=== PATIENT | female | born 1965 | race African-American/Black ===

== ENCOUNTER 2022-01-15 12:35 | Observation (INO) | payer BC ==
[~2022-01-15] VITALS: Ht 177.8 cm; Wt 62.7 kg
[2022-01-15 13:11] LABS: COLLECTION METHOD CLEAN CATCH
[2022-01-15 13:18] LABS: BASO % 0.4 % (0.0-2.0); EOS # 0.1 K/mm3 (0.0-0.7); EOS % 2.1 % (0.0-4.0); GRAN # 3.2 K/mm3 (1.4-6.5); GRAN % 61.3 % (42.2-75.2); HEMOGLOBIN 11.6 g/dl (12.5-16.0); LYMPH # 1.5 K/mm3 (1.2-3.4); LYMPH % 27.5 % (20.0-51.0); MEAN CELL VOLUME 94 fl (80.0-100.0); MEAN CORPUSCULAR HEMOGLOBIN 31 pg (27-31); MEAN CORPUSCULAR HGB CONC 33 g/dl (33.0-37.0); MEAN PLATELET VOLUME 10.2 fl (7.4-10.4); MONO # 0.5 K/mm3 (0.1-0.6); MONO % 8.5 % (1.7-9.3); PLATELET COUNT 244 K/mm3 (130-400); RED BLOOD COUNT 3.75 M/mm3 (4.10-5.30); REDCELL DISTRIBUTION WIDTH-CV 12.3 % (11.5-14.5)
[2022-01-15 13:20] LABS: HEMATOCRIT 35.1 % (37.0-47.0)
[2022-01-15 13:24] LABS: SQUAMOUS EPITHELIAL 0-2 /hpf (0-10); URINE APPEARANCE Clear (CLEAR/HAZY); URINE BACTERIA None Seen /hpf (NONE SEEN); URINE COLOR Yellow (YELLOW); URINE RBC None Seen /hpf (0-2); URINE WBC 0-2 /hpf (0-2)
[2022-01-15 13:25] LABS: INR 1.1 (0.8-3.0); PROTHROMBIN TIME 12.2 SECONDS (9.7-12.8)
[2022-01-15 13:29] LABS: URINE BLOOD Negative (NEGATIVE); URINE GLUCOSE Negative (NEGATIVE); URINE KETONE Negative (NEGATIVE); URINE NITRATE Negative (NEGATIVE); URINE PROTEIN(semi-quant) Negative (NEGATIVE); URINE UROBILINOGEN 0.2 (NEGATIVE)
[2022-01-15 13:37] LABS: ALANINE AMINOTRANSFERASE 25 U/L (0-55); ALBUMIN 3.4 gm/dL (3.5-5.0); ALKALINE PHOSPHATASE 81 U/L (40-150); ANION GAP 7 mmol/L (7-16); AST,SGOT 23 U/L (5-34); BILIRUBIN,TOTAL 0.2 mg/dL (0.2-1.2); BLOOD UREA NITROGEN 15 mg/dL (10-20); CALCIUM 9.4 mg/dL (8.4-10.2); CARBON DIOXIDE 28 mmol/L (22-29); CHLORIDE 103 mmol/L (98-107); CREATININE, serum 1.02 mg/dL (0.57-1.11); GLUCOSE 83 mg/dL (70-99); POTASSIUM 4.3 mmol/L (3.5-4.5); SODIUM 138 mmol/L (136-145); TOTAL PROTEIN 7.2 gm/dL (6.2-8.1)
[2022-01-15 13:44] LABS: TROPONIN-I < 0.010 ng/mL (0.00-0.033)
[2022-01-15 16:55] VITALS: BP 144/88; PULSE 58; TEMP 97.4
--- NOTE | 2022-01-15 18:14 | NUR ---
PT ADMITTED TO THE UNIT, VSS, ORIENT AND ALERTX 4, WITH IV CANNULAR RIGHT FORE ARM, NO SKIN ISSUES, SWALLOWING TEST DONE AT THE BED SIDE BY RN THICKENED APPLE JUICE GIVEN, GAG REFLEX NOTED, PT DENIES ANY PAIN DURING SWALLOWING NO CHOCKING NOTED, DIET ADVANCED TO REGULAR DIET.PT REGION IS JEHOVA WITNESS NO BLOOD TRANFUSION BUT OKAY WITH PLASMA TRANFUSION.
[2022-01-15] MEDS ORDERED: NEURONTIN300 MG/CAP PO (18:21)
[2022-01-15] MEDS ORDERED: ASPIRIN 81M81 MG/TA2 PO (18:22)
[2022-01-15] MEDS ORDERED: ALBUTEROL SULFAT3 M3 IH (18:23)
[2022-01-15 19:51] VITALS: BP 111/62; PULSE 83; TEMP 98.2
[2022-01-16] VITALS (7 sets, daily range): BP systolic 101–120; BP diastolic 58–80; PULSE 54–73; TEMP 97.4–98.7
--- NOTE | 2022-01-16 05:00 | NUR ---
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 PT RESTING IN BED NAPPING. PT COMPLAINED OF DEEP, DULL PAIN IN HER RIGHT NASAL AND RIGHT JAW AREA. HOSPITALIST CALLED. TYLENOL ORDERED AND GIVEN TO PT FOR PAIN. PT FELT THE TYLENOL HELPED SOME. PT DENIED CHEST PAIN, PALPITATIONS, N,V,D, SOB OR DIZZINESS. PT'S NEURO AND STROKE ASSESSMENTS WERE STABLE WITH HER RIGHT LEG SHOWING A SMALL DEFICIT. WILL CONTINUE TO MONITOR. PT EXPRESSED NO ADDITIONAL NEEDS AT THIS TIME. CALL LIGHT WITHIN REACH.
[2022-01-16 07:04] LABS: BASO % 0.4 % (0.0-2.0); EOS # 0.1 K/mm3 (0.0-0.7); EOS % 2.6 % (0.0-4.0); GRAN # 2.7 K/mm3 (1.4-6.5); GRAN % 55.8 % (42.2-75.2); HEMOGLOBIN 12.4 g/dl (12.5-16.0); LYMPH # 1.5 K/mm3 (1.2-3.4); LYMPH % 31.4 % (20.0-51.0); MEAN CELL VOLUME 94 fl (80.0-100.0); MEAN CORPUSCULAR HEMOGLOBIN 32 pg (27-31); MEAN CORPUSCULAR HGB CONC 34 g/dl (33.0-37.0); MEAN PLATELET VOLUME 10.7 fl (7.4-10.4); MONO # 0.5 K/mm3 (0.1-0.6); MONO % 9.6 % (1.7-9.3); PLATELET COUNT 253 K/mm3 (130-400); RED BLOOD COUNT 3.92 M/mm3 (4.10-5.30); REDCELL DISTRIBUTION WIDTH-CV 12.5 % (11.5-14.5)
[2022-01-16 07:05] LABS: HEMATOCRIT 36.7 % (37.0-47.0)
[2022-01-16 07:23] LABS: CALCIUM 9.5 mg/dL (8.4-10.2); CHOLESTEROL RISK RATIO 3.2; CREATININE, serum 0.86 mg/dL (0.57-1.11); MAGNESIUM 2.1 mg/dL (1.6-2.6); POTASSIUM 4.1 mmol/L (3.5-4.5)
--- NOTE | 2022-01-16 07:31 | NUR ---
PT AWAKE, STATES SHE HAD A CALM NIGHT,DENIES COMPLAINTS, REQUEST TO WALK TO THE BATHROOM AND BRUSH HER TEETH, SBA
--- NOTE | 2022-01-16 11:00 | NUR ---
PT ORIENT AND ALERT X4, VSS. DUE MEDICATION GIVEN PRESCRIBED, NO ADVERSE REACTION NOTED, PT REPORTS ALOT OF IMPROVEMENT COMPARED TO YESTERDAY
--- NOTE | 2022-01-16 11:13 | NUR ---
SW met with patient to complete intake. Patient provides that she just moved to [facility] with her son Caio [phone]. Patient states that PT stated that she may need a walker upon dc. Patient is independent with ADL's, and does not utilize HH services. Patient does not have a PCP or pharmacy. SW provided support documents to assist patient in obtaining physician and [facility] resource document. Patient does not have anyone appointed as DPOA/HC, and plans to return to her home upon DC. SW will continue to follow. DC plan: home
--- NOTE | 2022-01-16 18:39 | NUR ---
pt had a calm day, vss, alert and orient x4, due medication given as prescribed no adverse reaction noted.
[2022-01-17 04:03] VITALS: BP 103/59; PULSE 63; TEMP 97.6
--- NOTE | 2022-01-17 05:00 | NUR ---
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 PT IN BED WATCHING TV. PT DENIED GENERAL PAIN, CHEST PAIN, SOB, N,V,D OR DIZZINESS. PT CONTINUES WITH MILD LOWER RIGHT EXTREMITY WEAKINESS. PT'S UPPER RIGHT EXTREMITY SEEMED TO ME TO BE A LITTLE MORE WEAKER THAN THE PREVIOUS RAIL CAR PAINTER/SANDBLASTER. HOWEVER, PT FEELS HER UPPER AND LOWER RIGHT EXTREMITIES HAVE IMPROVED. PT EXPRESSED NO ADDITIONAL NEEDS AT THIS TIME. CALL LIGHT WITHIN REACH.
[2022-01-17 06:39] LABS: BASO % 0.5 % (0.0-2.0); EOS # 0.1 K/mm3 (0.0-0.7); EOS % 3.2 % (0.0-4.0); GRAN # 2.4 K/mm3 (1.4-6.5); GRAN % 56.7 % (42.2-75.2); HEMOGLOBIN 12.2 g/dl (12.5-16.0); LYMPH # 1.4 K/mm3 (1.2-3.4); LYMPH % 31.3 % (20.0-51.0); MEAN CELL VOLUME 92 fl (80.0-100.0); MEAN CORPUSCULAR HEMOGLOBIN 31 pg (27-31); MEAN CORPUSCULAR HGB CONC 33 g/dl (33.0-37.0); MEAN PLATELET VOLUME 10.3 fl (7.4-10.4); MONO # 0.4 K/mm3 (0.1-0.6); MONO % 8.1 % (1.7-9.3); PLATELET COUNT 252 K/mm3 (130-400); RED BLOOD COUNT 3.96 M/mm3 (4.10-5.30); REDCELL DISTRIBUTION WIDTH-CV 12.1 % (11.5-14.5)
[2022-01-17 06:54] LABS: HEMATOCRIT 36.6 % (37.0-47.0)
[2022-01-17 07:10] LABS: CALCIUM 9.1 mg/dL (8.4-10.2); CREATININE, serum 0.82 mg/dL (0.57-1.11); POTASSIUM 4.4 mmol/L (3.5-4.5)
--- NOTE | 2022-01-17 07:35 | NUR ---
PT STATE THAT SHE HAD A CALM NIGHT. DENIES COMPLAINTS OF PAIN. BREAKFAST ORDERED.
[2022-01-17 11:54] VITALS: BP 123/71; PULSE 63; TEMP 97.9
[2022-01-17 16:17] VITALS: BP 101/74; PULSE 70; TEMP 97.7
--- NOTE | 2022-01-17 18:00 | NUR ---
PT HAD A CALM DAY, VSS, ALERT AND ORIENT X4, DUE MEDICATION GIVEN AND WELL TOLARETED BY THE PT. NO ADVERSE REACTION NOTED.
[2022-01-17 20:17] VITALS: BP 111/69; PULSE 69; TEMP 98
[2022-01-18 00:24] VITALS: BP 107/59; PULSE 67; TEMP 97.8
[2022-01-18 04:23] VITALS: BP 99/59; PULSE 67; TEMP 97.7
--- NOTE | 2022-01-18 05:04 | NUR ---
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 PT RESTING IN BED WATCHING TV. PT COMPLAINED OF SOME RIGHT SHOULDER PAIN, THAT SHE FEELS HAPPEN, BECAUSE OF THE WAY SHE WAS LAYING ON IT. HOWEVER, PT DIDN'T FEEL LIKE SHE NEEDED ANYTHING FOR PAIN AT THIS TIME. PT DENIED CHEST PAIN, PALPITATIONS, N,V,D, SOB OR DIZZINESS. PT'S RIGHT EXTREMITIES SEEM TO ME, TO BE ABOUT THE SAME LAST NIGHT'S SHIFT. HOWEVER, PT FEELS THAT SHE CONTINUES TO IMPROVE. PT EXPRESSED NO ADDITIONAL NEEDS AT THIS TIME. CALL LIGHT WITHIN REACH.
[2022-01-18 06:34] LABS: BASO % 0.5 % (0.0-2.0); EOS # 0.1 K/mm3 (0.0-0.7); EOS % 3.2 % (0.0-4.0); GRAN # 2.4 K/mm3 (1.4-6.5); GRAN % 53.5 % (42.2-75.2); HEMATOCRIT 39.9 % (37.0-47.0); HEMOGLOBIN 13.3 g/dl (12.5-16.0); LYMPH # 1.4 K/mm3 (1.2-3.4); LYMPH % 32.6 % (20.0-51.0); MEAN CELL VOLUME 94 fl (80.0-100.0); MEAN CORPUSCULAR HEMOGLOBIN 31 pg (27-31); MEAN CORPUSCULAR HGB CONC 33 g/dl (33.0-37.0); MEAN PLATELET VOLUME 10.5 fl (7.4-10.4); MONO # 0.4 K/mm3 (0.1-0.6); PLATELET COUNT 251 K/mm3 (130-400); RED BLOOD COUNT 4.24 M/mm3 (4.10-5.30); REDCELL DISTRIBUTION WIDTH-CV 12.4 % (11.5-14.5)
[2022-01-18 06:55] LABS: CALCIUM 9.5 mg/dL (8.4-10.2); CREATININE, serum 0.86 mg/dL (0.57-1.11); MAGNESIUM 2.2 mg/dL (1.6-2.6); POTASSIUM 4.6 mmol/L (3.5-4.5)
[2022-01-18 07:24] VITALS: BP 95/54; PULSE 64; TEMP 98.1
--- NOTE | 2022-01-18 07:40 | NUR ---
Pt assessment complete. Pt sitting up in bed upon entry, she is A/O x4. Her breathing is even and unlabored on RA. Pt denies SOB. No pain at this time. She is aware of having a brain MRI today. Denies any further needs at this time.
--- NOTE | 2022-01-18 10:25 | NUR ---
Initial visit; Patient from [place], in [place] to attend [facility]. Elba is a [employer] girl who wanted Group Managing Director to keep her in her prayers and bring her a Bible. Group Managing Director brought her a Bible and she wrote a thank you note with some scripture.
[2022-01-18 11:35] VITALS: BP 100/65; PULSE 88; TEMP 97.9
[2022-01-18] MEDS ORDERED: AMOXICILLIN 8751 TAB PO (13:25)
[2022-01-18] MEDS ORDERED: LIPITOR 40MG TA40 MG PO (13:26)
[2022-01-18 15:36] VITALS: BP 117/68; PULSE 78; TEMP 98.7
--- NOTE | 2022-01-18 16:01 | NUR ---
Emergency Specialist met with patient to discuss ordering a front wheeled walker. Patient would like it ordered through [facility]. SW faxed referral and order to [facility]. SW confirmed it was received and that it will be delivered to patient's room.
--- NOTE | 2022-01-18 17:15 | NUR ---
Discharge paperwork and instructions reviewed with patient. All questions answered at this time. IV to RAC dc'd catheter tip intact. Pt wheeled out of facility at this time
== END 2022-01-18 17:28 | disposition home or self-care (01) ==
LOC: COL.ER 12:35 → MEDICAL 15:50 → OB 01-18 06:40 → MEDICAL 01-18 06:40
PROVIDERS: Emergency Medicine; ADMIT Hospitalist
DX: R20.0 Anesthesia of skin (principal); R20.2 Paresthesia of skin; K08.9 Disorder of teeth and supporting structures, unspecified; I07.1 Rheumatic tricuspid insufficiency; J90 Pleural effusion, not elsewhere classified; J45.909 Unspecified asthma, uncomplicated; Z28.310 Unvaccinated for COVID-19; Z28.9 Immunization not carried out for unspecified reason
CPT/HCPCS: G0378; J1650; Q9967

== ENCOUNTER 2024-03-14 11:37 | Emergency (ER) | payer OTHER ==
[~2024-03-14] VITALS: Ht 177.8 cm; Wt 63.6 kg
[~2024-03-14 11:37] MED LIST: ALBUTEROL SULFAT3 M3 IH; AMOXICILLIN 8751 TAB PO; ASPIRIN 81M81 MG/TA2 PO; LIPITOR 40MG TA40 MG PO; NEURONTIN300 MG/CAP PO
[2024-03-14 11:50] VITALS: TEMP 98.2
[2024-03-14 13:23] LABS: INR 1.1 (0.8-3.0)
[2024-03-14 13:25] LABS: BASO % 0.1 % (0.0-2.0); EOS # 0.1 K/mm3 (0.0-0.7); EOS % 0.7 % (0.0-4.0); GRAN # 4.3 K/mm3 (1.4-6.5); GRAN % 62.3 % (42.2-75.2); HEMATOCRIT 37.8 % (37.0-47.0); HEMOGLOBIN 12.8 g/dl (12.5-16.0); LYMPH # 2.1 K/mm3 (1.2-3.4); LYMPH % 29.5 % (20.0-51.0); MEAN CELL VOLUME 96 fl (80.0-100.0); MEAN CORPUSCULAR HEMOGLOBIN 33 pg (27-31); MEAN CORPUSCULAR HGB CONC 34 g/dl (33.0-37.0); MEAN PLATELET VOLUME 10.2 fl (7.4-10.4); MONO # 0.5 K/mm3 (0.1-0.6); MONO % 7.3 % (1.7-9.3); PLATELET COUNT 274 K/mm3 (130-400); RED BLOOD COUNT 3.94 M/mm3 (4.10-5.30); REDCELL DISTRIBUTION WIDTH-CV 12.7 % (11.5-14.5)
[2024-03-14 13:44] LABS: ALANINE AMINOTRANSFERASE 23 U/L (0-55); ALBUMIN 3.6 g/dL (3.4-4.8); ALKALINE PHOSPHATASE 64 U/L (40-150); ANION GAP 10 mmol/L (7-16); AST,SGOT 23 U/L (5-34); BILIRUBIN,TOTAL 0.4 mg/dL (0.2-1.2); BLOOD UREA NITROGEN 18 mg/dL (10-20); CALCIUM 9.4 mg/dL (8.4-10.2); CHLORIDE 105 mEq/L (98-107); CREATININE, serum 1.11 mg/dL (0.57-1.11); GLUCOSE 87 mg/dL (70-99); POTASSIUM 4.3 mEq/L (3.5-4.5); SODIUM 140 mEq/L (136-145); TOTAL PROTEIN 7.5 g/dl (6.2-8.1)
[2024-03-14 13:51] LABS: TROPONIN-I < 0.010 ng/mL (0.00-0.033)
[2024-03-14 15:00] VITALS: BP 129/82; PULSE 79
== END 2024-03-14 15:05 | disposition home or self-care (01) ==
LOC: COL.ER 11:37
PROVIDERS: Family Medicine
DX: R00.2 Palpitations (principal)